=== PATIENT | female | born 1985 | race Caucasian/White ===

== ENCOUNTER 2017-10-15 00:09 | Emergency (ER) | payer SELFPAY ==
[2017-10-15 01:18] VITALS: BP 154/98; PULSE 67; TEMP 99.6; BMI 26.5
--- NOTE | 2017-10-15 01:44 | PDOC ---
History of Present Illness - General Chief Complaint: Pain, Acute Stated Complaint: ABD PAIN Time Seen by Provider: 10/15/17 01:38 History Source: Patient - History of Present Illness Initial Comments: 10/15/17 01:50 32 year old female Complaining of left flank pain radiating to left lower quadrant. Positive nausea and vomiting. Patient reports that the pain has been for 1 day worsening throughout the day. Denies fevers/chills, diarrhea, positive bowel and 10/15/17 03:00 Past History - Past Medical History Allergies/Adverse Reactions: Allergies Allergy/AdvReac Type Severity Reaction Status Date / Time No Known Allergies Allergy Verified 10/15/17 01:17 Home Medications: Ambulatory Orders No Home Medications 0 dose .ROUTE UTDICT 12/02/11 Ibuprofen [Ibu] 600 mg PO QID PRN #20 tablet 10/15/17 Oxycodone HCl/Acetaminophen [Percocet 5-325 mg Tablet] 1 - 2 tab PO Q6H PRN #10 tab MDD 4 10/15/17 Tamsulosin HCl [Flomax] 0.4 mg PO DAILY #7 cap.er.24h 10/15/17 Asthma: No Cancer: No Cardiac Disorders: No CVA: No CHF: No Dementia: No Diabetes: No GI Disorders: No Disorders: No HTN: No Hypercholesterolemia: No Liver Disease: No Seizures: No Thyroid Disease: No - Surgical History Abdominal Surgery: No Appendectomy: No Cardiac Surgery: No Cholecystectomy: No Lung Surgery: No Neurologic Surgery: No Orthopedic Surgery: No - Suicide/Smoking/Psychosocial Hx Smoking History: Never smoked Have you smoked in the past 12 months: No Information on smoking cessation initiated: No Hx Alcohol Use: No Drug/Substance Use Hx: No Substance Use Type: None Hx Substance Use Treatment: No Review of Systems - Review of Systems Able to Perform ROS?: Yes Is the patient limited [place] proficient: No Constitutional: Yes: Malaise HEENTM: No: Symptoms Reported, See HPI, Eye Pain, Blurred Vision, Tearing, Recent change in vision, Double Vision, Cataracts, Ear Pain, Ocular Prothesis, Ear Discharge, Nose Pain, Nose Congestion, Tinnitus, Nose Bleeding, Hearing Loss , Throat Pain, Throat Swelling, Mouth Pain, Dental Problems, Difficulty Swallowing, Mouth Swelling, Other ABD/GI: Yes: Nausea, Vomiting : Yes: Dysuria, Flank Pain (left ) *Physical Exam - Vital Signs Last Vital Signs Temp Pulse Resp BP Pulse Ox 99.6 F 67 20 154/98 99 10/15/17 00:20 10/15/17 00:20 10/15/17 00:20 10/15/17 00:20 10/15/17 00:20 - Physical Exam General Appearance: Yes: Appropriately Dressed Respiratory/Chest: positive: Lungs Clear, Normal Breath Sounds Gastrointestinal/Abdominal: positive: Normal Bowel Sounds, Tender (LLq) Musculoskeletal: positive: CVA Tenderness (L) Integumentary: positive: Normal Color, Dry, Warm Neurologic: positive: Fully Oriented, Alert, Normal Mood/Affect ED Treatment Course - LABORATORY CBC & Chemistry Diagram: 10/15/17 02:16 10/15/17 02:16 Medical Decision Making - Medical Decision Making kidney stone P:CBC CMP Spiral CT UA urine culture 10/15/17 04:17 CTAP: Kidneys: There is a 3 mm stone in the left ureterovesicular junction with moderate hydronephrosis and ureteral distention. There are bilateral nonobstructing calyceal renal stones 10/15/17 04:36 Patient's pain is now controlled. Will D/C home. 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 *DC/Admit/Observation/Transfer Diagnosis at time of Disposition: Kidney stone on left side - Discharge Dispostion Disposition: HOME - Prescriptions Prescriptions: Ibuprofen [Ibu] 600 mg PO QID PRN #20 tablet PRN Reason: Pain Level 4 - 6 Oxycodone HCl/Acetaminophen [Percocet 5-325 mg Tablet] 1 - 2 tab PO Q6H PRN #10 tab MDD 4 PRN Reason: Moderate Pain Tamsulosin HCl [Flomax] 0.4 mg PO DAILY #7 cap.er.24h - Referrals Referrals: Stefany Galan MD [Primary Care Provider] - Gokul Lacey MD [Staff Physician] - - Patient Instructions Additional Instructions: Drink plenty of fluids Take Flomax once daily starting tomorrow. Your first dose was given here Take ibuprofen for mild to moderate pain. Take Percocet as prescribed for moderate to severe pain. If symptoms worsen please return to the emergency room You need to follow-up with a urologist as soon as possible - Post Discharge Activity Forms/Work/School Notes: Back to Work
[2017-10-15] MEDS ORDERED: SODIUM CHLORIDE 0.9% 500 ML INFUS.BAG IV ONE (02:15)
[2017-10-15] MEDS ORDERED: ONDANSETRON 4 MG/2 ML VIAL IVPUSH ONE (02:15)
--- NOTE | 2017-10-15 02:16 | PDOC ---
*Physical Exam - Vital Signs Last Vital Signs Temp Pulse Resp BP Pulse Ox 99.6 F 67 20 154/98 99 10/15/17 00:20 10/15/17 00:20 10/15/17 00:20 10/15/17 00:20 10/15/17 00:20 ED Treatment Course - LABORATORY CBC & Chemistry Diagram: 10/15/17 02:16 10/15/17 02:16 Medical Decision Making - Medical Decision Making 10/15/17 02:15 agree with care from JAY Arce *DC/Admit/Observation/Transfer Diagnosis at time of Disposition: Kidney stone on left side - Discharge Dispostion Disposition: HOME Condition at time of disposition: Improved - Prescriptions Prescriptions: Ibuprofen [Ibu] 600 mg PO QID PRN #20 tablet PRN Reason: Pain Level 4 - 6 Oxycodone HCl/Acetaminophen [Percocet 5-325 mg Tablet] 1 - 2 tab PO Q6H PRN #10 tab MDD 4 PRN Reason: Moderate Pain Tamsulosin HCl [Flomax] 0.4 mg PO DAILY #7 cap.er.24h - Referrals Referrals: Gokul Lacey MD [Staff Physician] - Stefany Galan MD [Primary Care Provider] - - Patient Instructions Printed Discharge Instructions: DI for Kidney Stones Additional Instructions: Drink plenty of fluids Take Flomax once daily starting tomorrow. Your first dose was given here Take ibuprofen for mild to moderate pain. Take Percocet as prescribed for moderate to severe pain. If symptoms worsen please return to the emergency room You need to follow-up with a urologist as soon as possible - Post Discharge Activity Forms/Work/School Notes: Back to Work
[2017-10-15 02:17] LABS: URINE APPEARANCE CLEAR; URINE BILIRUBIN NEGATIVE (<2.0 mg/dL); URINE COLOR LTYELLOW; URINE GLUCOSE (UA) NEGATIVE (NEGATIVE); URINE KETONE TRACE (NEGATIVE); URINE LEUK ESTERASE NEGATIVE (NEGATIVE); URINE NITRITE NEGATIVE (NEGATIVE); URINE PROTEIN NEGATIVE (NEGATIVE); URINE UROBILINOGEN NEGATIVE mg/dL (0.2-1.0)
[2017-10-15] MEDS ORDERED: ONDANSETRON 4 MG/2 ML VIAL ONE (02:17)
[2017-10-15 02:35] LABS: BASO % 0.5 % (0-2.0); EOS % 0.4 % (0-4.5); HEMATOCRIT 37.9 % (32.4-45.2); HEMOGLOBIN 12.6 GM/dL (10.7-15.3); MCH 29.5 pg (25.7-33.7); MCHC 33.2 g/dl (32.0-36.0); MEAN CELL VOLUME 88.6 fl (80-96); MEAN PLT VOLUME 9.3 fl (7.5-11.1); MONO % 5.9 % (3.8-10.2); NEUT % 77.2 % (42.8-82.8); PLATELET COUNT 217 K/MM3 (134-434); RBC 4.27 M/mm3 (3.60-5.2); RDW 13.7 % (11.6-15.6); WHITE BLOOD COUNT 8.5 K/mm3 (4.0-10.0)
[2017-10-15 03:00] LABS: ALK PHOS 73 U/L (45-117); ANION GAP 9 (8-16); BILIRUBIN,TOTAL 0.2 mg/dL (0.2-1.0); BLOOD UREA NITROGEN 16 mg/dL (7-18); CALCIUM 8.9 mg/dL (8.5-10.1); CHLORIDE 102 mmol/L (98-107); CO2 29 mmol/L (21-32); CREATININE 0.9 mg/dL (0.55-1.02); GLUCOSE,RANDOM 147 mg/dL (74-106); POTASSIUM 3.8 mmol/L (3.5-5.1); SGOT/AST 36 U/L (15-37); SGPT/ALT 35 U/L (12-78); SODIUM 140 mmol/L (136-145); TOT PROT 7.7 g/dl (6.4-8.2)
[2017-10-15] MEDS ORDERED: TAMSULOSIN HCL 0.4 MG CAP.ER.24H (FP) PO ONE (04:17)
[2017-10-15] MEDS ORDERED: KETOROLAC TROMETHAMINE 30 MG/1 ML VIAL IVPUSH ONE (04:17)
[2017-10-15] MEDS ORDERED: KETOROLAC TROMETHAMINE 30 MG/1 ML VIAL ONE (04:40)
[2017-10-15] MEDS ORDERED: TAMSULOSIN HCL 0.4 MG CAP.ER.24H (FP) ONE (04:40)
== END 2017-10-15 05:10 | disposition home or self-care (01) ==
LOC: JER 00:09
PROC: 3E0337Z Introduction of Electrolytic and Water Balance Substance into Peripheral Vein, Percutaneous Approach (ICD-10-PCS; principal; 2017-10-15)
DX: N20.0 Calculus of kidney (principal)
CPT/HCPCS: 36415; 74176; 80053; 81003; 84703; 85025; 99283-25

== ENCOUNTER 2017-12-20 14:22 | Day surgery (SDC) | payer OTHER ==
[2017-12-17 13:02] VITALS: BMI 29.4
[2017-12-20 14:52] VITALS: TEMP 98.2
[2017-12-20] MEDS ORDERED: MIDAZOLAM HCL 2 MG/2 ML SINGLE DOSE VIAL ONE ×2 (16:02)
[2017-12-20] MEDS ORDERED: fentaNYL CITRATE 250 MCG/5 ML VIAL ONE (16:04)
--- NOTE | 2017-12-20 16:29 | OP ---
Operative Note - Note: Operative Date: 12/20/17 Pre-Operative Diagnosis: Right renal stone Operation: Right ESWL Findings: 3 mm low pole Right kidney stone Surgeon: Rodger Soler Anesthesia: Fractional Estimated Blood Loss (mls): 0 Operative Report Dictated: Yes
[2017-12-20 18:13] VITALS: BP 126/75; PULSE 58
--- NOTE | 2017-12-21 08:21 | OP ---
DATE OF OPERATION: 12/20/2017 PREOPERATIVE DIAGNOSIS: Right renal stone. POSTOPERATIVE DIAGNOSIS: Right renal stone. PROCEDURE: Right extracorporeal shock wave lithotripsy. ATTENDING: Keren Brown MD ANESTHESIA: Fractional. DESCRIPTION OF OPERATION: The patient was brought in the operating room and placed in supine position on the operating room table. Ultrasonography and fluoroscopy were performed. A 3-mm right lower pole stone was identified. Anesthesia and preoperative antibiotics were then administered. Shockwave lithotripsy was then performed; 2500 impulses at 17 joules of power were administered to the stone with excellent fragmentation noted under real-time ultrasonography and fluoroscopy. No complications were noted. The disposition of the patient was to the recovery room. KEREN BROWN M.D. [id number]
== END 2017-12-20 18:13 | disposition home or self-care (01) ==
LOC: JASU-SURG 14:22
PROVIDERS: ATTEND Urology
PROC: 0TF3XZZ Fragmentation in Right Kidney Pelvis, External Approach (ICD-10-PCS; principal; 2017-12-20 17:00)
DX: N20.0 Calculus of kidney (principal)
CPT/HCPCS: 84703

== ENCOUNTER 2019-12-16 09:15 | Emergency (ER) | payer OTHER ==
[2019-12-16 09:22] VITALS: BP 142/93; PULSE 74; TEMP 98.1; BMI 26.5
[2019-12-16] MEDS ORDERED: IBUPROFEN 600 MG TABLET (FP) PO ONE ×2 (09:54→10:32)
--- NOTE | 2019-12-16 10:04 | PDOC ---
History of Present Illness - General Chief Complaint: Injury Stated Complaint: LFT KNEE INJURY - History of Present Illness Initial Comments: Radha Gong is a 34yo woman who presents with left knee pain after an apparent dislocation of the patella. She states that she fell, and her knee moved over the the side. She pushed it back, but she has continued pain at the inferior lateral knee. Ms Gong reports that she can walk and has intact strength and sensation. She says that she has had similar injuries in the past but never saw orthopedics; she has always just pushed her knee back into place at home. Ms Gong presents along with a picture of her knee with the left patella displaced laterally. She denies any head trauma, LOC, or other injury or current complaint. Past History - Medical History Allergies/Adverse Reactions: Allergies Allergy/AdvReac Type Severity Reaction Status Date / Time No Known Allergies Allergy Verified 12/16/19 09:20 Home Medications: Ambulatory Orders NK [No Known Home Medication] 12/16/19 Anemia: No Asthma: No Cancer: No Cardiac Disorders: Yes (palpitations) CVA: No COPD: No CHF: No Dementia: No Diabetes: No GI Disorders: No Disorders: Yes (renal stones) HTN: No Hypercholesterolemia: No Liver Disease: No Seizures: No Thyroid Disease: No - Surgical History Abdominal Surgery: No Appendectomy: No Cardiac Surgery: No Cholecystectomy: No Lung Surgery: No Neurologic Surgery: No Orthopedic Surgery: No - Reproductive History Is Patient Now?: No - Psycho-Social/Smoking History Smoking History: Never smoked Have you smoked in the past 12 months: No - Substance Abuse Hx (Audit-C & DAST Scrn) How often the patient has a drink containing alcohol: Monthly or less Score: In Men: 4 or > Positive; In Women: 3 or > Positive: 1 Screen Result (Pos requires Nsg. Audit-10AR): Negative In the last yr the pt used illegal drug/Rx for NonMed reason: No Score: Yes response is considered Positive: 0 Screen Result (Positive result requires Nsg. DAST-10): Negative *Physical Exam - Vital Signs Last Vital Signs Temp Pulse Resp BP Pulse Ox 98.1 F 74 18 142/93 100 12/16/19 09:21 12/16/19 09:21 12/16/19 09:21 12/16/19 09:21 12/16/19 09:21 Medical Decision Making - Medical Decision Making 12/16/19 09:56 Radha Gong is a 34yo woman who presents with left knee pain after an apparent dislocation of the patella, now reduced. She reports a history of similar injury in the past. - Viewed picture w/ patellar dislocation, now in place - Xrays of L knee to eval for underlying fracture 12/16/19 11:03 - Xrays reviewed. No injury noted - Radiology report for 2-view xray without acute pathology. Report for additional views pending. - Most likely will d/c home with a knee immobilizer and orthopedics follow up Saira Princess PGY3 Discharge - Discharge Information Problems reviewed: Yes Clinical Impression/Diagnosis: Knee pain, left Closed patellar dislocation Qualifiers: Encounter type: initial encounter Laterality: left Qualified Code(s): S83.005A - Unspecified dislocation of left patella, initial encounter Condition: Stable Disposition: HOME - Admission No - Follow up/Referral Referrals: Chi Perry MD [Staff Physician] - Avelino Santo DO [Staff Physician] - - Patient Discharge Instructions Patient Printed Discharge Instructions: DI for Patellar Dislocation Additional Instructions: Discharge Instructions: You were seen in the emergency department for knee pain after a dislocation of the patella (kneecap). Your knee was back in place, but you will need to keep it in a special brace until you are seen by an orthopedic surgeon. Home Care and Follow Up: - You may use over the counter medications as needed for pain at home. 650- 1000mg acetaminophen (Tylenol) or 600mg ibuprofen (Motrin or Advil) can be used every 6-8 hours. If needed for continued pain, these medications may be alternated every 3-4 hours. For example, if you take ibuprofen at 9am, you may take acetaminophen at noon, ibuprofen at 3pm, etc. - Try using an ice pack for 20 minutes every hour for additional control of pain and swelling. - Wear the knee brace provided and avoid walking on your knee until you have been seen by an orthopedic surgeon. - You need to follow up with an orthopedic surgeon within the next week. You have been given contact information for several doctors, Dr Hargrove or Dr Santo. Call on Wednesday to schedule an appointment. - Seek immediate medical care if you have significant worsening of your symptoms, you are unable to bear weight at all, your foot becomes cold or numb, you have swelling in your feet, or you have any other medical emergency. Instrucciones de descarga: Lo vieron en el departamento de emergencias por dolor en la rodilla despus de tatyana dislocacin de la rtula. Alfaro rodilla volvi a estar en alfaro lugar, david deber mantenerla con un aparato ortopdico especial hasta que lo liz un cirujano ortopdico. Atencin domiciliaria y seguimiento: - Puede usar medicamentos de venta fredi segn sea necesario para el dolor en casa. Se pueden usar 650-1000 mg de acetaminofn (Tylenol) o 600 mg de ibuprofeno (Motrin o Advil) cada 6-8 horas. Si es necesario para el dolor continuo, estos medicamentos se pueden alternar cada 3-4 horas. Por ejemplo, si jason ibuprofeno a las 9 a.m., puede tasha acetaminofeno al medioda, ibuprofeno a las 3 p.m., etc. - Intente usar tatyana bolsa de [place] 20 minutos cada hora para un control adicional del dolor y la hinchazn. - Use la rodillera proporcionada y evite caminar sobre alfaro rodilla hasta que lo liz un cirujano ortopdico. - Necesita hacer un seguimiento con un cirujano ortopdico dentro de la prxima semana. Se le jung proporcionado informacin de contacto de varios mdicos, el Dr. Hargrove o el Dr. Santo. Llame el krista para programar tatyana kye. - Busque atencin mdica inmediata si tiene un empeoramiento significativo de yohannes sntomas, no puede soportar peso en absoluto, alfaro pie se enfra o se adormece, tiene hinchazn en los pies o tiene cualquier otra emergencia mdica. Print Language: FAROESE - Post Discharge Activity
--- NOTE | 2019-12-16 10:26 | PDOC ---
Documentation entered by Candice Beltran SCRIBE, acting as scribe for Radha Vaughn MD. Radha Vaughn MD: This documentation has been prepared by the Ruby gardner Brenda, SCRIBE, under my direction and personally reviewed by me in its entirety. I confirm that the documentation accurately reflects all work, treatment, procedures, and medical decision making performed by me. Attending Attestation - Resident Resident Name: PrincessSaira - ED Attending Attestation I have performed the following: I have examined & evaluated the patient, The case was reviewed & discussed with the resident, I agree w/resident's findings & plan, Exceptions are as noted - HPI HPI: 12/16/19 10:07 34yo woman who presents with left knee pain after an apparent dislocation of the patella. She states that she fell, and her knee moved over the the side. She pushed it back, but she has continued pain at the inferior lateral knee. Ms Gong reports that she can walk and has intact strength and sensation. She says that she has had similar injuries in the past but never saw orthopedics; she has always just pushed her knee back into place at home. Ms Gong presents along with a picture of her knee with the left patella disp laced laterally. She denies any head trauma, LOC, or other injury or current complaint. - Physicial Exam PE: 12/16/19 10:24 physical exam General: NAD, well appearing HEENT: NCAT, EOMI, PERRL. airway patent Resp: no distress, speaking full sentences. Vascular: 2+ DP pulses symmetric and equal. MSK: notable for soft compartments, Cap refill <2 sec. Proximal and distal strength 5/5, mink rancher strength 5/5 - equal and symmetric. Plantar flexion and dorsiflexion 5/5. FROM. Sensation grossly intact to light touch. No calf tenderness. Neuro: alert, no focal neurologic deficits Skin: color normal color, warm and well perfused. Cap refill <2 sec. Lower Extremity: soft compartment. no calf tenderness. 5/5 plantar and dorsiflexion. SILT. no laxity at knee jt. 2+ DP pulses bilaterally. +anterior knee TTP no deformity visualized or palpated. drawer tests negative 12/16/19 11:12 - Medical Decision Making 12/16/19 10:07 Vital Signs Temp Pulse Resp BP Pulse Ox 98.1 F 74 18 142/93 100 12/16/19 09:21 12/16/19 09:21 12/16/19 09:21 12/16/19 09:21 12/16/19 09:21 12/16/19 10:24 VS reviewed, wnl pt showed picture from her phone where she took of her knee, with left patella laterally, c/w displacement, and spontaneously reduced after she maneuvered. no e/o knee dislocation, NVI, no joint laxity Xray knee normal joint space alignment, no acute fx or dislocation. sunrise view neg for patella fx. no dislocation noted Discussed results with patient. knee immobilizer. Rest ice and elevation. Pain control with OTC meds including motrin/tylenol as needed every 6 hours; no narcotics needed. Ortho followup provided. WBAT. Please return to ED for increased pain, weakness, numbness/tingling, fever, or redness. 12/16/19 11:00 12/16/19 11:13 Discharge - Discharge Information Problems reviewed: Yes Clinical Impression/Diagnosis: Knee pain, left Closed patellar dislocation Qualifiers: Encounter type: initial encounter Laterality: left Qualified Code(s): S83.005A - Unspecified dislocation of left patella, initial encounter Condition: Stable Disposition: HOME - Admission No - Follow up/Referral Referrals: Chi Perry MD [Staff Physician] - Avelino Santo DO [Staff Physician] - - Patient Discharge Instructions Patient Printed Discharge Instructions: DI for Patellar Dislocation Additional Instructions: Discharge Instructions: You were seen in the emergency department for knee pain after a dislocation of the patella (kneecap). Your knee was back in place, but you will need to keep it in a special brace until you are seen by an orthopedic surgeon. Home Care and Follow Up: - You may use over the counter medications as needed for pain at home. 650- 1000mg acetaminophen (Tylenol) or 600mg ibuprofen (Motrin or Advil) can be used every 6-8 hours. If needed for continued pain, these medications may be alternated every 3-4 hours. For example, if you take ibuprofen at 9am, you may take acetaminophen at noon, ibuprofen at 3pm, etc. - Try using an ice pack for 20 minutes every hour for additional control of pain and swelling. - Wear the knee brace provided and avoid walking on your knee until you have been seen by an orthopedic surgeon. - You need to follow up with an orthopedic surgeon within the next week. You have been given contact information for several doctors, Dr Hargrove or Dr Ra mcduffie. Call on Wednesday to schedule an appointment. - Seek immediate medical care if you have significant worsening of your symptoms, you are unable to bear weight at all, your foot becomes cold or numb, you have swelling in your feet, or you have any other medical emergency. Instrucciones de descarga: Lo vieron en el departamento de emergencias por dolor en la rodilla despus de attyana dislocacin de la rtula. Alfaro rodilla volvi a estar en alfaro lugar, david deber mantenerla con un aparato ortopdico especial hasta que lo liz un cirujano ortopdico. Atencin domiciliaria y seguimiento: - Puede usar medicamentos de venta fredi segn sea necesario para el dolor en casa. Se pueden usar 650-1000 mg de acetaminofn (Tylenol) o 600 mg de ibuprofeno (Motrin o Advil) cada 6-8 horas. Si es necesario para el dolor continuo, estos medicamentos se pueden alternar cada 3-4 horas. Por ejemplo, si jason ibuprofeno a las 9 a.m., puede tasha acetaminofeno al medioda, ibuprofeno a las 3 p.m., etc. - Intente usar tatyana bolsa de [place] 20 minutos cada hora para un control adicional del dolor y la hinchazn. - Use la rodillera proporcionada y evite caminar sobre alfaro rodilla hasta que lo liz un cirujano ortopdico. - Necesita hacer un seguimiento con un cirujano ortopdico dentro de la prxima semana. Se le jung proporcionado informacin de contacto de varios mdicos, el Dr. Hargrove o el Dr. Santo. Llame el krista para programar tatyana kye. - Busque atencin mdica inmediata si tiene un empeoramiento significativo de yohannes sntomas, no puede soportar peso en absoluto, alfaro pie se enfra o se adormece, tiene hinchazn en los pies o tiene cualquier otra emergencia mdica. Print Language: BENGALI - Post Discharge Activity
== END 2019-12-16 11:24 | disposition home or self-care (01) ==
LOC: JER 09:15
DX: S83.005A Unspecified dislocation of left patella, initial encounter (principal)
CPT/HCPCS: 73564-TC-LT-FY; 99285-25

== ENCOUNTER 2020-08-31 16:17 | Emergency (ER) | payer OTHER ==
[2020-08-31 16:36] VITALS: TEMP 98; BMI 31.2
[2020-08-31] MEDS ORDERED: ACETAMINOPHEN 325 MG TABLET (FP) PO ONE (17:10)
[2020-08-31 17:18] VITALS: BP 143/99; PULSE 77
[2020-08-31] MEDS ORDERED: ACETAMINOPHEN 325 MG TABLET (FP) ONE (17:28)
== END 2020-08-31 18:27 | disposition home or self-care (01) ==
LOC: JER 16:17 → MERGE 16:17 → JER 18:27
DX: R51.9 Headache, unspecified (principal)
CPT/HCPCS: 93005; 93010; 99283-25